=== PATIENT | male | born 1950 | race Hispanic/Latino ===

== ENCOUNTER 2021-01-10 06:56 | Day surgery (SDC) | payer MEDICARE, OTHER ==
[2021-01-10] MEDS ORDERED: SODIUM CHLORIDE 0.9% 1000 ML 1,000 ML IV SCH (07:00)
--- NOTE | 2021-01-10 07:40 | Anesthesia Day of Surgery ---
Anesthesia Day of Surgery - Day of Surgery Patient Examined: Yes Patient H&P Reviewed: Yes Patient is NPO: Yes
--- NOTE | 2021-01-10 07:40 | Anesthesia Consultation ---
Anesthesia Consult and Med Hx Date of service: 01/10/21 - Airway Anesthetic Teeth Evaluation: Good ROM Head & Neck: Adequate Mental/Hyoid Distance: Adequate Mallampati Class: Class II Intubation Access Assessment: Good - Pre-Operative Health Status ASA Pre-Surgery Classification: ASA2 Proposed Anesthetic Plan: MAC - Pulmonary Hx Smoking: No - Cardiovascular System Hx Hypertension: Yes (Off meds)
[2021-01-10] MEDS ORDERED: ONDANSETRON 4 MG/2 ML INJ ONE (08:41)
[2021-01-10] MEDS ORDERED: LIDOCAINE MPF (2%) 20 MG/1 ML VIAL 5 ML ONE (08:41)
[2021-01-10] MEDS ORDERED: propofoL 200 MG/20 ML VIAL IV ONE ×2 (08:42→08:58)
[2021-01-10] MEDS ORDERED: fentaNYL 100 MCG/2 ML INJ ONE (08:42)
--- NOTE | 2021-01-10 09:21 | Operative Report ---
PROCEDURE: Esophagogastroduodenoscopy with biopsy. INDICATIONS: This is a 70-year-old white male who has a history of GERD symptoms. EGD was done to assess for any significant upper GI pathology. DESCRIPTION OF PROCEDURE: The procedure was done after getting informed consent with MAC anesthesia. Instrument was passed through the hypopharynx into the esophagus, which did show esophageal ulceration in the lower third of the esophagus, possibly pill-induced. There was [id number]-[id number] erosive esophagitis present. Biopsy was done from the distal esophagus to assess for the severity of the erosive esophagitis as well as from the mid esophagus to assess for the esophageal ulcer. The stomach showed gastritis. The pylorus was patent. The duodenum in the first and second portion appeared normal. There was some evidence of antral gastritis present. There was no evidence of any hiatal hernia on the retroverted view. Biopsy was done from the gastric antrum, gastric body and angular incisura to rule out for H. pylori and atrophic gastritis. There was minimal bleeding associated with the procedure. No complications associated with the procedure. ASSESSMENT: Gastroesophageal reflux disease symptoms, esophageal ulcer, possibly pill-induced, wqhy-[id number] erosive esophagitis, gastritis, no peptic ulcer disease noted. PLAN: To treat the patient with PPI, have the patient avoid aspirin and aspirin-related products for the next 4-5 days. Otherwise, resume home medication and follow up in the office in 1-2 weeks' time. A colonoscopy will also be done as part of colon polyp screening. Procedure was done in the GI lab with assistance of the GI lab team, which included the GI nurse, cardiac monitor technicianIlya and with assistance of anesthesia. JOB# [id number] CHRISTIANNE/ALECIA
--- NOTE | 2021-01-10 09:24 | Procedure Note ---
Date of procedure: 01/10/21 Pre-op diagnosis: GERD/ Colon Polyp Screening/P/H/O Colon Polyp Post-op diagnosis: other (Esophageal Ulcer (possibly 'pill induced')/ Mild to Moderate, Erosive Esophagitis/ Gastritis/ Solitary, Small Rectal Polyp (possibly hyperplastic)/ No Diverticular Disease or Internal Hemorrhoids noted/ Normal Ileal Mucosa) Procedure: EGD with Biopsy and Colonoscopy with Biopsy Anesthesia: RIVERA PINEDA Surgeon: CHAD GANNON Estimated blood loss: minimal Pathology: none Specimen disposition: to lab Condition: stable Disposition: same day (Treat with PPI. Avoid aspirin and NSAID and anticoagulants for 4 days; otherwise resume home medication. Follow up in 1 to 2 weeks ([phone]).)
--- NOTE | 2021-01-10 09:26 | Operative Report ---
PROCEDURE: Colonoscopy. INDICATIONS: The patient had an EGD done prior to the colonoscopy, which had shown presence of an esophageal ulcer, possibly pill-induced [id number] erosive esophagitis and gastritis. Colonoscopy was done since the patient has a prior history of colon polyp and a family history of colon cancer. The patient's brother had colon cancer and the patient has a prior history of prostate cancer. DESCRIPTION OF PROCEDURE: Initial rectal exam was unremarkable. Instrument was passed through the rectum onto the cecum, which was identified with ileocecal valve and the appendiceal orifice. Visualization was fair to good. The cecum was also examined on the retroverted view. No additional pathology was noted. The scope was withdrawn to the hepatic flexure and reintroduced and again no additional pathology was seen. The terminal ileum was intubated, showed normal mucosa. Cecum, ascending colon, transverse colon, descending colon, and sigmoid showed normal mucosa. There were a solitary polyp noted in the rectosigmoid area, which was small possibly hyperplastic that was removed by cold biopsy and with minimal bleeding, the rectum did not show any hemorrhoid on the retroverted view. ASSESSMENT: History of colon polyp, small solitary rectosigmoid polyp noted, possibly hyperplastic, removed by cold biopsy. Otherwise, normal colon mucosa. No diverticular disease noted. No internal hemorrhoids noted and a normal terminal ileal mucosa. PLAN: To resume home medication. Have the patient avoid aspirin and aspirin-related products for the next 4-5 days. Treat the patient with PPI and also encouraged the patient not to take the pills while lying in bed and have the patient follow up in the office in 1-2 weeks' time. The procedure was done in the GI lab with assistance of the GI lab team, which included the GI nurse; Ilya Gomez and with assistance of anesthesia. JOB# [id number] CHRISTIANNE/ALECIA
[2021-01-10] MEDS ORDERED: WATER FOR IRRIG STERILE 250 ML BOTTLE IR ONE (09:33)
[2021-01-10 10:07] VITALS: BP 133/82
--- NOTE | 2021-01-10 15:54 | Post Anesthesia Evaluation ---
- Post Anesthesia Evaluation Patient Participated: Yes Airway Patent: Yes Stable Respiratory Function: Yes Nausea/Vomiting: No Temp > 96.8F: Yes Pain Manageable: Yes Adequeate Hydration: Yes Anesthesia Complications: No Block Receding Appropriately: Not Applicable Patient on Ventilator: No
== END 2021-01-10 10:00 | disposition home or self-care (01) ==
LOC: GIO 06:56
DX: Z12.11 Encounter for screening for malignant neoplasm of colon (principal); K21.9 Gastro-esophageal reflux disease without esophagitis; K21.00 Gastro-esophageal reflux disease with esophagitis, without bleeding; K29.70 Gastritis, unspecified, without bleeding; K63.5 Polyp of colon; K31.89 Other diseases of stomach and duodenum; K63.89 Other specified diseases of intestine; Z86.010 Personal history of colon polyps; Z79.899 Other long term (current) drug therapy; Z98.890 Other specified postprocedural states
CPT/HCPCS: 43239; 45380; 88305; 88342; J2405; J2704; J3010; J7030